=== PATIENT | female | born 1965 | race Caucasian/White ===

== ENCOUNTER 2017-04-17 12:39 | Emergency (ER) | payer BC, OTHER ==
[2017-04-17 12:47] VITALS: TEMP 98.4
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
[2017-04-17 15:19] VITALS: BP 128/73; PULSE 76; RESP 16; O2SAT 95
== END 2017-04-17 15:00 | disposition home or self-care (01) ==
DX: S39.92XA Unspecified injury of lower back, initial encounter (principal); S89.92XA Unspecified injury of left lower leg, initial encounter; V03.99XA Pedestrian with other conveyance injured in collision with car, pick-up truck or van, unspecified whether traffic or nontraffic accident, initial encounter; Y92.481 Parking lot as the place of occurrence of the external cause